=== PATIENT | female | born 1975 | race Caucasian/White ===

== ENCOUNTER 2017-02-11 09:01 | Emergency (ER) | payer OTHER ==
--- NOTE | 2017-02-19 16:47 | UC ---
Aggie Coleman Rebecca, scribed for Isis Sampson MD on 02/11/17 at 0923 . Complaint Female HPI - HPI Summary HPI Summary: Pt is a 41 y/o F who presents to [facility] c/o increased urinary frequency and dysuria. Sx began suddenly this morning at 0600 and have been constant since onset. Sx aggravated and alleviated by nothing. Denies any other symptoms. Previous similar episode 1.5 years ago with a dx of bladder infection. Denies any medication allergies. LNMP a few weeks ago. - History Of Current Complaint Chief Complaint: UCGU Stated Complaint: BURINING URINATION Hx Obtained From: Patient Hx Last Menstrual Period: 01/28/17 Onset/Duration: Sudden Onset, Still Present Timing: Constant Severity Initially: Mild Severity Currently: Mild Character: Burning - Dysuria Aggravating Factor(s): Nothing Alleviating Factor(s): Nothing Associated Signs And Symptoms: Positive: Negative - Allergies/Home Medications Allergies/Adverse Reactions: Allergies Allergy/AdvReac Type Severity Reaction Status Date / Time No Known Allergies Allergy Verified 07/20/16 10:14 PMH/Surg Hx/FS Hx/Imm Hx Endocrine History Of: Denies: Diabetes, Thyroid Disease Cardiovascular History Of: Denies: Cardiac Disorders, Hypertension Respiratory History Of: Denies: COPD, Asthma GI/ History Of: Denies: Ulcer - Surgical History Surgical History: Yes Surgery Procedure, Year, and Place: BTL - Family History Known Family History: Negative: Cardiac Disease, Hypertension, Diabetes - Social History Alcohol Use: None Substance Use Type: None Smoking Status (MU): Never Smoked Tobacco Review of Systems Constitutional: Negative Skin: Negative Eyes: Negative ENT: Negative Respiratory: Negative Cardiovascular: Negative Gastrointestinal: Negative Genitourinary: Dysuria, Frequency Motor: Negative Neurovascular: Negative Musculoskeletal: Negative Neurological: Negative Psychological: Negative All Other Systems Reviewed And Are Negative: Yes - Comments Additional Review of Systems Comments: See HPI Physical Exam Triage Information Reviewed: Yes Appearance: Well-Nourished Vital Signs: Initial Vital Signs Temp 98.4 F 02/11/17 09:10 Pulse 78 02/11/17 09:10 Resp 16 02/11/17 09:10 BP 117/68 02/11/17 09:10 Pulse Ox 100 02/11/17 09:10 Vital Signs Reviewed: Yes Eyes: Positive: Conjunctiva Clear ENT Exam: Normal Neck exam: Normal Neck: Positive: No Lymphadenopathy Respiratory Exam: Normal Respiratory: Positive: Chest non-tender, Lungs clear, Normal breath sounds, No respiratory distress, No accessory muscle use, Other: - NO dyspnea, no tachypnea , normal respiratory rate Cardiovascular Exam: Normal Cardiovascular: Positive: RRR, No Murmur, Pulses Normal, Brisk Capillary Refill , Other: - Good general skin color Abdominal Exam: Normal Abdomen Description: Positive: Nontender, No Organomegaly, Soft Bowel Sounds: Positive: Present Musculoskeletal Exam: Normal Musculoskeletal: Positive: Strength Intact Neurological Exam: Normal - Nonfocal, grossly intact Psychological Exam: Normal - Conversing easily and appropriately Skin Exam: Normal Skin: Negative: rashes Complaint Female Dx - Course Course Of Treatment: No new problems in CCC. Considered below differential Dx s. . Urine results: urine color: yellow; clarity: clear; pH: 6.5; specific gravity: 1.010; proteins: negative; glucose: negative; ketones: negative; blood : trace-intact H; nitritre: negative; bilirubin: negative; urobilinogen: 0.2; leukocyte esterases: 1+H. See AVS instructions. Answered questions as prosed. Offered Pyridium, pt declined. Refuses urine culture due to insurance not covering it. Reviewed D/C instructions. - Differential Dx/Diagnosis Provider Diagnoses: UTI /cystitis Discharge - Discharge Plan Condition: Stable Disposition: HOME Prescriptions: Ciprofloxacin TAB* [Cipro 500 MG TAB*] 500 mg PO BID #14 tab Patient Education Materials: Urinary Tract Infection in Women (ED), Hematuria ( ED) Referrals: [facility] PHYSICIAN REFERRAL [Outside] No Primary Care Phys,NOPCP [Primary Care Provider] - Additional Instructions: Please follow up with your primary care provider. Seek medical attention for worsening problems in the meantime. Urine culture has been sent. You will be notified if change in treatment is recommended. Please seek medical attention for worse or new problems in the meantime. Recommend follow up with a primary care physician - [facility] referral tel number attached. Blood in urine - likely from infection - however, please have this rechecked when you are feeling better, and not on your period. Drink plenty of fluids. The documentation as recorded by the Aggie jeffers Rebecca accurately reflects the service I personally performed and the decisions made by me, Isis Samposn MD.
== END 2017-02-11 09:46 | disposition home or self-care (01) ==
LOC: UCEAST 09:01
DX: N39.0 Urinary tract infection, site not specified (principal)
CPT/HCPCS: 81003; 99212; G0463

== ENCOUNTER 2017-10-23 08:23 | Emergency (ER) | payer OTHER ==
[2017-10-23 08:30] VITALS: BP 116/66
--- NOTE | 2017-10-23 08:50 | UC ---
Complaint Female HPI - HPI Summary HPI Summary: 41 yo WF c/o dysuria and urinary frequency x 2-3days. 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 Denies LBP, low abd pain or f/c. - History Of Current Complaint Chief Complaint: UCGU Stated Complaint: BURNING URINATION Time Seen by Provider: 10/23/17 08:37 Hx Last Menstrual Period: 10/09/17 - Allergies/Home Medications Allergies/Adverse Reactions: Allergies Allergy/AdvReac Type Severity Reaction Status Date / Time No Known Allergies Allergy Verified 10/23/17 08:29 Home Medications: Home Medications NK [No Home Medications Reported] 10/23/17 [History Confirmed 10/23/17] PMH/Surg Hx/FS Hx/Imm Hx - Surgical History Surgical History: Yes Surgery Procedure, Year, and Place: Left arm surgery; Tubal Ligation - Family History Known Family History: Positive: None Negative: Cardiac Disease, Hypertension, Diabetes - Social History Alcohol Use: None Substance Use Type: None Smoking Status (MU): Never Smoked Tobacco - Immunization History Most Recent Influenza Vaccination: Not UTD Review of Systems Constitutional: Negative Skin: Negative Eyes: Negative ENT: Negative Respiratory: Negative Cardiovascular: Negative Gastrointestinal: Negative Genitourinary: Dysuria, Frequency, Urgency Motor: Negative Neurovascular: Negative Musculoskeletal: Negative Neurological: Negative Psychological: Negative All Other Systems Reviewed And Are Negative: Yes Physical Exam Triage Information Reviewed: Yes Vital Signs: Initial Vital Signs Temp 36.7 C 10/23/17 08:24 Pulse 85 10/23/17 08:24 Resp 16 10/23/17 08:24 BP 116/66 10/23/17 08:24 Pulse Ox 100 10/23/17 08:24 Eye Exam: Normal ENT Exam: Normal Dental Exam: Normal Neck exam: Normal Neck: Positive: 1 Respiratory Exam: Normal Cardiovascular Exam: Normal Abdominal Exam: Normal Abdomen Description: Positive: Soft, Other: - no suprapubic tenderness. Negative: CVA Tenderness (R), CVA Tenderness (L) Musculoskeletal Exam: Normal Neurological Exam: Normal Psychological Exam: Normal Skin Exam: Normal Complaint Female Dx - Course Course Of Treatment: UA positive for blood and LE - Differential Dx/Diagnosis Provider Diagnoses: Acute cystitis Discharge - Discharge Plan Condition: Good Disposition: HOME Patient Education Materials: Urinary Tract Infection in Women (ED) Referrals: No Primary Care Phys,NOPCP [Primary Care Provider] -
== END 2017-10-23 09:07 | disposition home or self-care (01) ==
LOC: UCEAST 08:23
DX: N30.00 Acute cystitis without hematuria (principal)
CPT/HCPCS: 81003; 99212; G0463

== ENCOUNTER 2018-02-01 15:20 | Emergency (ER) | payer OTHER ==
[2018-02-01 15:31] VITALS: BP 135/58
--- NOTE | 2018-02-01 16:02 | UC ---
Eye Complaint HPI - HPI Summary HPI Summary: Patient presents to the with chief complaint of left eye blurry vision, "seeing black" after a branch hit her in the eye with the side of the eye. ( she is not sure). Denies any pain to the eye. There is a small amount of blood to the lower anterior chamber of the eye. She denies any other injuries. No blurry vision to the right eye. She was wearing contacts at the time and has just taken them out prior to arrival. Denies any headaches. - History of Current Complaint Hx Obtained From: Patient Hx Last Menstrual Period: now ?: No Onset/Duration: Sudden Onset Timing: Constant Severity Initially: Moderate Severity Currently: Moderate Pain Intensity: 0 Pain Scale Used: 0-10 Numeric Location of Injury: Globe, Other - anterior chamber with blooe - hyphema Aggravating Factor(s): Nothing Alleviating Factor(s): Nothing Associated Signs And Symptoms: Positive: Vision Impairment Right Related History: Foreign Body - Possible, Trauma - Risk Factors Globe Rupture Risk Factors: Recent Trauma Acute Glaucoma Risk Factors: Eye Trauma Optic Artery Occlusion Risk Factors: Negative <Renetta Pimentel - Last Filed: 02/01/18 15:57> <Andree Judge - Last Filed: 02/03/18 17:24> - History of Current Complaint Chief Complaint: UCEye Stated Complaint: EYE INJURY Time Seen by Provider: 02/01/18 15:47 - Allergies/Home Medications Allergies/Adverse Reactions: Allergies Allergy/AdvReac Type Severity Reaction Status Date / Time No Known Allergies Allergy Verified 02/01/18 15:31 Home Medications: Home Medications NK [No Home Medications Reported] 02/01/18 [History Confirmed 02/01/18] PMH/Surg Hx/FS Hx/Imm Hx Previously Healthy: Yes - Surgical History Surgical History: Yes Surgery Procedure, Year, and Place: Left arm surgery; Tubal Ligation - Family History Known Family History: Positive: None Negative: Cardiac Disease, Hypertension, Diabetes - Social History Occupation: Employed Full-time Lives: With Family Alcohol Use: None Substance Use Type: None Smoking Status (MU): Never Smoked Tobacco - Immunization History Most Recent Influenza Vaccination: Not UTD <Renetta Pimentel - Last Filed: 02/01/18 15:57> Review of Systems Constitutional: Negative Skin: Negative Eyes: Blurred Vision, Other - hyphema ENT: Negative Respiratory: Negative Cardiovascular: Negative Motor: Negative Neurovascular: Negative Psychological: Negative Is Patient Immunocompromised?: No All Other Systems Reviewed And Are Negative: Yes <Renetta Pimentel - Last Filed: 02/01/18 15:57> Physical Exam Triage Information Reviewed: Yes Appearance: Well-Appearing, Well-Nourished Vital Signs: Initial Vital Signs Temp 97.8 F 02/01/18 15:27 Pulse 86 02/01/18 15:27 Resp 12 02/01/18 15:27 BP 135/58 02/01/18 15:27 Pulse Ox 100 02/01/18 15:27 Vital Signs Reviewed: Yes Eye Exam: Normal Eyes: Positive: Other: - hyphema 1/3 anterior chamber Neck exam: Normal Neck: Positive: Supple, No Lymphadenopathy Respiratory Exam: Normal Respiratory: Positive: Chest non-tender, Lungs clear Cardiovascular Exam: Normal Cardiovascular: Positive: RRR Musculoskeletal Exam: Normal Musculoskeletal: Positive: Strength Intact Psychological: Positive: Normal Response To Family Skin Exam: Normal <Renetta Pimentel - Last Filed: 02/01/18 15:57> Vital Signs: Initial Vital Signs Temp 36.6 C 02/01/18 15:27 Pulse 86 02/01/18 15:27 Resp 12 02/01/18 15:27 BP 135/58 02/01/18 15:27 Pulse Ox 100 02/01/18 15:27 <Andree Judge - Last Filed: 02/03/18 17:24> Eye Complaint Course/Dx - Course Course Of Treatment: During the course of treatment, Dr. Felder's office was paged and he is willing to see the patient immediately. Patient was discharged to go directly over to Dr. Felder's office. - Differential Dx/Diagnosis Provider Diagnoses: Hyphema <Renetta Pimentel - Last Filed: 02/01/18 15:57> Discharge <Renetta Pimentel - Last Filed: 02/01/18 15:57> <Andree Judge - Last Filed: 02/03/18 17:24> - Discharge Plan Condition: Stable Disposition: HOME Referrals: No Primary Care Phys,NOPCP [Primary Care Provider] - Rolando Felder MD [Medical Doctor] -
== END 2018-02-01 15:55 | disposition home or self-care (01) ==
LOC: UCEAST 15:20
DX: H21.02 Hyphema, left eye (principal)
CPT/HCPCS: 99211; G0463

== ENCOUNTER 2018-06-23 07:10 | Emergency (ER) | payer OTHER ==
[2018-06-23 07:27] VITALS: BP 141/78
--- NOTE | 2018-06-23 07:33 | UC ---
Complaint Female HPI - HPI Summary HPI Summary: This is scribe Bethanie Marcial documenting for attending Patricio Navarrete M.D. Pt is a 42 y/o F who presents to [facility] c/o UTI sx since 229 when she woke up. She is complaining of dysuria and increased urinary frequency with associated pain rated 6/10, described as burning with urination. Sx aggravated and alleviated by nothing. Denies any fever, chills, abdominal pain and back pain. - History Of Current Complaint Chief Complaint: UCGU Stated Complaint: URINARY ISSUE Time Seen by Provider: 06/23/18 07:15 Hx Obtained From: Patient Hx Last Menstrual Period: monday Onset/Duration: Still Present, Worse Since - Last night Severity Currently: Moderate Pain Intensity: 6 Pain Scale Used: 0-10 Numeric Character: Burning Aggravating Factor(s): Nothing Alleviating Factor(s): Nothing Associated Signs And Symptoms: Negative: Fever, Back Pain - Allergies/Home Medications Allergies/Adverse Reactions: Allergies Allergy/AdvReac Type Severity Reaction Status Date / Time No Known Allergies Allergy Verified 06/23/18 07:21 Home Medications: Home Medications Ibuprofen [Advil] 400 mg PRN 06/23/18 [History] PMH/Surg Hx/FS Hx/Imm Hx - Additional Past Medical History Additional PMH: Negative PMHx: HTN, DM, Thyroid Disease, COPD - Surgical History Surgical History: Yes Surgery Procedure, Year, and Place: Left arm surgery; Tubal Ligation - Family History Known Family History: Negative: Cardiac Disease, Hypertension, Diabetes - Social History Alcohol Use: None Substance Use Type: None Smoking Status (MU): Never Smoked Tobacco - Immunization History Most Recent Influenza Vaccination: Not UTD Review of Systems Constitutional: Negative Skin: Negative Eyes: Negative ENT: Negative Respiratory: Negative Cardiovascular: Negative Gastrointestinal: Negative Genitourinary: Dysuria, Frequency Motor: Negative Neurovascular: Negative Musculoskeletal: Negative Neurological: Negative Psychological: Negative All Other Systems Reviewed And Are Negative: Yes - Comments Additional Review of Systems Comments: NEGATIVE: Fever, chills, abdominal pain, back pain Physical Exam - Summary Physical Exam Summary: VITAL SIGNS: Reviewed. GENERAL: Patient is a well-developed and nourished female who is lying comfortable in the stretcher. Patient is not in any acute respiratory distress. HEAD AND FACE: Normocephalic EYES: PERRLA, EOMI x 2. EARS: Hearing grossly intact. MOUTH: Oropharynx within normal limits. NECK: Supple, trachea is midline, no adenopathy, no JVD, no carotid bruit. CHEST: Symmetric, no tenderness at palpation LUNGS: Clear to auscultation bilaterally. No wheezing or crackles. CVS: Regular rate and rhythm, S1 and S2 present, no murmurs or gallops appreciated. ABDOMEN: Soft, non-tender. Bowel sounds are normal. No abdominal abnormal pulsations. EXTREMITIES: Full ROM in all major joints, no edema, no cyanosis or clubbing. NEURO: Alert and oriented x 3. No acute neurological deficits. Speech is normal and follows commands. SKIN: Dry and warm Triage Information Reviewed: Yes Vital Signs: Initial Vital Signs Temp 98.1 F 06/23/18 07:22 Pulse 73 06/23/18 07:22 Resp 16 06/23/18 07:22 BP 141/78 06/23/18 07:22 Pulse Ox 100 06/23/18 07:22 Vital Signs Reviewed: Yes Complaint Female Dx - Course Course Of Treatment: The patient was found to have increased BP in UC. The patient will follow up with PCP for better control of BP. Patient is a 42-year- old female who presents to the urgent care with chief complaint of dysuria and urinary frequency. Urinalysis positive with leukocytes. Because of the symptoms and positive leukocytes the patient will be given ciprofloxacin for the UTI. Patient declines urine cultures to be sent to the lab. Patient understands above the sensitivities of the right antibiotic however the patient declined. Patient is hemodynamically stable alert and oriented 3. - Differential Dx/Diagnosis Differential Diagnosis/HQI/PQRI: Urinary Tract Infection Provider Diagnoses: UTI Discharge - Sign-Out/Discharge Documenting (check all that apply): Patient Departure - Discharge - Discharge Plan Condition: Stable Disposition: HOME Prescriptions: Ciprofloxacin TAB* [Cipro 500 MG TAB*] 500 mg PO BID #6 tab Phenazopyridine TAB* [Pyridium 100 mg TAB*] 100 mg PO TID #9 tab Patient Education Materials: Urinary Tract Infection in Women (DC) Referrals: Raquel Mittal MD [Primary Care Provider] - Additional Instructions: Take medications as instructed and adhere to plan Take Acetaminophen or ibuprofen for pain or fever Increase your fluid intake Return to the UC or go to the emergency department if symptoms worsen Follow-up with primary care physician in next 2-3 days - Billing Disposition and Condition Condition: STABLE Disposition: Home
== END 2018-06-23 07:46 | disposition home or self-care (01) ==
LOC: UCEAST 07:10
DX: N39.0 Urinary tract infection, site not specified (principal)
CPT/HCPCS: 81003; 99212; G0463

== ENCOUNTER 2019-08-18 20:20 | Emergency (ER) | payer OTHER ==
[2019-08-18 20:25] VITALS: BP 102/61
== END 2019-08-18 20:41 | disposition left against medical advice (07) ==
LOC: ED 20:20
DX: Z53.21 Procedure and treatment not carried out due to patient leaving prior to being seen by health care provider (principal); R10.9 Unspecified abdominal pain
CPT/HCPCS: 99282